=== PATIENT | female | born 1950 | race Caucasian/White ===

== ENCOUNTER → 2016-11-12 | Outpatient (CLI) | payer OTHER ==
[~2016-11-12] MED LIST: ALBU1AER9 INH; AMLO5TAB2 PO; ASCO500C5 PO; ASPI-428 PO; ASTN NAE; BUPR-267 PO; CALC-354 PO; FLUT0.0529 NAE; FLUT110A INH; GLUCTAB7 PO; LORA10CA2 PO; MECL1TAB42 PO; MULT-280 PO; OMEG12006 PO; PANT40TA PO; SALI0.6510 NAE
--- NOTE | 2016-11-12 16:06 | MAMMOGRAPHY REPORT ---
BILATERAL DIGITAL SCREENING MAMMOGRAM WITH CAD: 11/12/2016 CLINICAL HISTORY: Routine screening. Patient has no complaints. TECHNIQUE: Bilateral CC and MLO views were obtained. Current study was also evaluated with a Compute r Aided Detection (CAD) system. COMPARISON: Comparison is made to exams dated: 10/26/2015 mammogram, 09/08/2013 mammogram, 08/27/2013 ma mmogram, 08/26/2012 mammogram, and 06/27/2010 mammogram - [facility]. BREAST COMPOSITION: There are scattered areas of fibroglandular density in both breasts. FINDINGS: There are multiple bilateral benign rim calcifications. No suspicious mass, architectural distortion or cluster of new, suspicious microcalcifications is seen. IMPRESSION: ACR BI-RADS CATEGORY 1: NEGATIVE There is no mammographic evidence of malignancy. A 1 year screening mammogram is recommended. The pa tient will receive written notification of the results. Approximately 10% of breast cancers are not detected with mammography. A negative mammographic report should not delay biopsy if a clinically suggestive mass is present. Ligia Pinon M.D. ay/:11/12/2016 15:59:05 [facility]: Marivel BURLESON(R)(M), [facility] letter sent: Normal 1/2 BI-RADS Code: ACR BI-RADS Category 1: Negative
== END | disposition home or self-care (01) ==
LOC: C.MAMM 15:34
PROVIDERS: ATTEND Family Medicine
DX: Z12.31 Encounter for screening mammogram for malignant neoplasm of breast (principal)